=== PATIENT | male | born 1940 | race Caucasian/White ===

== ENCOUNTER 2016-05-22 09:42 | Outpatient (CLI) | payer MEDICARE | END 2016-05-22 09:43 | disposition home or self-care (01) | DX: I48.91 Unspecified atrial fibrillation (principal) ==

== ENCOUNTER 2016-05-30 12:44 | Outpatient (CLI) | payer MEDICARE | END 2016-05-30 12:45 | disposition home or self-care (01) | DX: I48.91 Unspecified atrial fibrillation (principal) ==

== ENCOUNTER 2016-06-06 09:56 | Outpatient (CLI) | payer MEDICARE | END 2016-06-06 09:57 | disposition home or self-care (01) | DX: I48.91 Unspecified atrial fibrillation (principal) ==

== ENCOUNTER 2016-06-19 09:33 | Outpatient (CLI) | payer MEDICARE | END 2016-06-19 09:34 | disposition home or self-care (01) | DX: I48.91 Unspecified atrial fibrillation (principal) ==

== ENCOUNTER 2016-06-24 10:14 | Outpatient (CLI) | payer MEDICARE | END 2016-06-24 10:15 | disposition home or self-care (01) | DX: N05.9 Unspecified nephritic syndrome with unspecified morphologic changes (principal); D70.9 Neutropenia, unspecified; D63.1 Anemia in chronic kidney disease; R80.9 Proteinuria, unspecified ==

== ENCOUNTER 2016-06-27 10:48 | Outpatient (CLI) | payer MEDICARE | END 2016-06-27 10:49 | disposition home or self-care (01) | DX: L93.2 Other local lupus erythematosus (principal); M31.30 Wegener's granulomatosis without renal involvement; N00.9 Acute nephritic syndrome with unspecified morphologic changes; N05.9 Unspecified nephritic syndrome with unspecified morphologic changes; I50.9 Heart failure, unspecified; D89.89 Other specified disorders involving the immune mechanism, not elsewhere classified; R80.9 Proteinuria, unspecified; D47.2 Monoclonal gammopathy ==

== ENCOUNTER 2016-06-30 15:21 | Outpatient (CLI) | payer MEDICARE | END 2016-06-30 15:22 | disposition home or self-care (01) | DX: N28.9 Disorder of kidney and ureter, unspecified (principal); N28.1 Cyst of kidney, acquired ==

== ENCOUNTER 2016-07-16 10:22 | Outpatient (CLI) | payer MEDICARE | END 2016-07-16 10:23 | disposition home or self-care (01) | DX: I48.91 Unspecified atrial fibrillation (principal); N05.9 Unspecified nephritic syndrome with unspecified morphologic changes ==

== ENCOUNTER 2016-08-15 11:29 | Outpatient (CLI) | payer MEDICARE | END 2016-08-15 11:30 | disposition home or self-care (01) | DX: E78.00 Pure hypercholesterolemia, unspecified (principal); M10.9 Gout, unspecified; N05.9 Unspecified nephritic syndrome with unspecified morphologic changes ==

== ENCOUNTER 2016-09-12 13:53 | Outpatient (CLI) | payer MEDICARE | END 2016-09-12 13:54 | disposition home or self-care (01) | DX: I65.23 Occlusion and stenosis of bilateral carotid arteries (principal); I49.9 Cardiac arrhythmia, unspecified; I50.9 Heart failure, unspecified; I08.1 Rheumatic disorders of both mitral and tricuspid valves ==

== ENCOUNTER 2016-09-12 13:55 | Outpatient (CLI) | payer MEDICARE | END 2016-09-12 13:56 | disposition home or self-care (01) | DX: I65.23 Occlusion and stenosis of bilateral carotid arteries (principal) ==

== ENCOUNTER 2016-09-17 14:10 | Outpatient (CLI) | payer MEDICARE | END 2016-09-17 14:11 | disposition home or self-care (01) | DX: I48.91 Unspecified atrial fibrillation (principal); N05.9 Unspecified nephritic syndrome with unspecified morphologic changes ==

== ENCOUNTER 2016-09-18 11:15 | Outpatient (CLI) | payer MEDICARE | END 2016-09-18 11:16 | disposition home or self-care (01) | DX: N05.9 Unspecified nephritic syndrome with unspecified morphologic changes (principal) ==

== ENCOUNTER 2016-10-23 09:16 | Outpatient (CLI) | payer MEDICARE ==
[2016-10-23 18:22] LABS: CREATININE 1.5 mg/dL (0.6-1.2)
== END 2016-10-23 09:17 | disposition home or self-care (01) ==
LOC: LAB.F 09:16
PROVIDERS: ATTEND Physician Assistant Medical
DX: I48.91 Unspecified atrial fibrillation (principal)
CPT/HCPCS: 36415; 82565; 85610

== ENCOUNTER 2016-11-20 08:09 | Outpatient (CLI) | payer MEDICARE | END 2016-11-20 08:10 | disposition home or self-care (01) | LOC: LAB.F 08:09 | PROVIDERS: ATTEND Internal Medicine | DX: I48.91 Unspecified atrial fibrillation (principal) | CPT/HCPCS: 85610 ==

== ENCOUNTER 2016-12-23 11:09 | Outpatient (CLI) | payer MEDICARE | END 2016-12-23 11:10 | disposition home or self-care (01) | LOC: LAB.F 11:09 | PROVIDERS: ATTEND Internal Medicine | DX: Z79.01 Long term (current) use of anticoagulants (principal) | CPT/HCPCS: 85610 ==

== ENCOUNTER 2017-01-22 12:31 | Outpatient (CLI) | payer MEDICARE | END 2017-01-22 12:32 | disposition home or self-care (01) | LOC: LAB.F 12:31 | PROVIDERS: ATTEND Internal Medicine | DX: I48.91 Unspecified atrial fibrillation (principal) | CPT/HCPCS: 85610 ==

== ENCOUNTER 2017-02-20 08:57 | Outpatient (CLI) | payer MEDICARE | END 2017-02-20 08:58 | disposition home or self-care (01) | LOC: LAB.F 08:57 | PROVIDERS: ATTEND Internal Medicine | DX: I48.91 Unspecified atrial fibrillation (principal) | CPT/HCPCS: 85610 ==

== ENCOUNTER 2017-03-17 12:26 | Outpatient (CLI) | payer MEDICARE | END 2017-03-17 12:27 | disposition home or self-care (01) | LOC: LAB.F 12:26 | PROVIDERS: ATTEND Physician Assistant Medical | DX: I48.91 Unspecified atrial fibrillation (principal); Z79.01 Long term (current) use of anticoagulants | CPT/HCPCS: 85610 ==

== ENCOUNTER 2017-03-20 12:04 | Outpatient (CLI) | payer MEDICARE | END 2017-03-20 12:05 | disposition home or self-care (01) | LOC: DI 12:04 | PROVIDERS: ATTEND Internal Medicine Cardiovascular Disease | DX: I08.1 Rheumatic disorders of both mitral and tricuspid valves (principal); Z95.2 Presence of prosthetic heart valve | CPT/HCPCS: 93306 ==